=== PATIENT | male | born 1960 | race Caucasian/White ===

== ENCOUNTER → 2017-10-18 | Outpatient (CLI) | payer OTHER ==
[~2017-10-18] MED LIST: BLOOD PRESSURE MED; CETI5TAB2 PO; ESOM1CAP6 PO; MECL25CH PO; PAXI20TA PO; TAB-TAB PO; TEKT150T PO; ZOFR4TAB3 SL
--- NOTE | 2017-10-18 11:09 | EKG ---
Date Performed: 10/18/2017 Time Performed: 09:57:30 PTAGE: 57 years EKG: Sinus rhythm . Poor R wave progression - probable normal variant Inferior T wave changes are nonspecific Borderlin e ECG Since the prior tracing, there has been no significant change PREVIOUS TRACING : 07/06/2015 00.49 DOCTOR: Taz Yung Interpretating Date/Time 10/18/2017 11:04:08
== END ==
LOC: HCAV 09:49
PROVIDERS: ATTEND Orthopaedic Surgery Orthopaedic Surgery of the Spine
DX: Z01.810 Encounter for preprocedural cardiovascular examination (principal)
CPT/HCPCS: 93005